=== PATIENT | female | born 1965 | race Asian ===

== ENCOUNTER 2022-06-24 20:20 | Emergency (ER) | payer OTHER ==
[~2022-06-24] VITALS: Ht 162.6 cm; Wt 122.5 kg
[~2022-06-24 20:20] MED LIST: ALBUTEROL0.083 % IN; BYDUREON2 MG SC; CARISOPRODOL350 MG PO; CLOPIDOGREL75 MG PO; DULOXETINE HCL30 MG PO; FURO40TA93 PO; GABA300C2 PO; MELOXICAM15 MG PO; NYST100016 TOP; OMEPRAZOLE40 MG PO; PRED5TAB3 PO; RIZATRIPTAN BEN10 M1 PO; RLFLU500T PO; ROPINIROLE2 M1 PO; SINGULAIR10 MG PO; TRIAMCINOLON0.12 TOP; VALSARTAN40 MG PO
[2022-06-24 23:00] VITALS: BP 152/82; TEMP 97.5
== END 2022-06-24 23:10 | disposition home or self-care (01) ==
LOC: ED 20:31
DX: S16.1XXA Strain of muscle, fascia and tendon at neck level, initial encounter (principal); M54.89 Other dorsalgia; W01.0XXA Fall on same level from slipping, tripping and stumbling without subsequent striking against object, initial encounter; Y92.89 Other specified places as the place of occurrence of the external cause
CPT/HCPCS: 99283